=== PATIENT | male | born 1945 | race Caucasian/White ===

== ENCOUNTER 2022-07-09 07:38 | Outpatient (CLI) | payer MEDICARE, SELFPAY ==
[2022-07-09 08:10] LABS: Anion Gap 8 mmol/L (8-16); Blood Urea Nitrogen 31 mg/dL (9-20); Calcium 8.8 mg/dL (8.4-10.2); Carbon Dioxide 26 mmol/L (22-30); Chloride 101 mmol/L (98-107); Estimated Glomerular Filt Rate 49; Glucose 220 mg/dL (65-110); Potassium 4.8 mmol/L (3.4-5.0); Sodium 135 mmol/L (137-145)
== END 2022-07-09 07:39 | disposition home or self-care (01) ==
PROVIDERS: Anesthesiology; PCP Internal Medicine; Visit Provider Plastic Surgery
DX: E11.9 Type 2 diabetes mellitus without complications (principal)
CPT/HCPCS: 36415; 80048

== ENCOUNTER 2022-07-14 00:25 | Day surgery (SDC) | payer MEDICARE, SELFPAY ==
--- NOTE | 2022-07-08 10:40 | PC.NURSE ---
PRE-OP INSTRUCTIONS, PLEASE READ CAREFULLY Report to the Outpatient Waiting Room, entrance under the green pavilion located off [facility], at time _0600 _ on date _07/14/22_. Planned Procedure Time: _0730_. Time changes happen often and if your time is changed the preop area will call you the afternoon before. - You and your visitor will be asked to self-screen and do not enter if you have any COVID symptoms. - Only one visitor is requested with a max of two and NO children visitors are allowed at this time. - The patient visitor may be requested to leave or wait in car when not with patient due to distancing restrictions. - A mask is optional within the hospital at this time. Patients may have clear liquids (water, carbonated beverages, clear teas, apple juice) until 3 hours prior to surgery (0430 AM) with a maximum of 20 ounces. - No food from midnight until time of surgery Take the following medications with a SIP of water the morning of surgery: _METOPROLOL_ DO NOT STOP ANY OF YOUR OTHER PRESCRIPTION MEDICATIONS PRIOR TO SURGERY ?EXCEPT THE FOLLOWING Medications to discontinue per physician ____NONE Date to take last dose Please no make-up, nail amharic, hairspray, perfume, deodorant, or body powder the day of surgery. No jewelry (including any body piercings) or valuables the day of surgery, leave them at home. Please take a shower or bath the night before, or the morning of, surgery with an antibacterial soap. Wear comfortable, loose fitting clothing. - Jewelry must be removed prior to entering the operating room. Rings and piercings that are not removed may be cut off. - The hospital will not accept responsibility for valuables. - Please leave all valuables, including medications, at home the day of surgery. If you are going home after surgery, a licensed buggy driver must drive you home. - NO public transportation without another adult if you receive anesthesia. - We recommend that an adult stay with you for 24 hours following discharge. - We also recommend that you do not drive, make important decision, drink alcoholic beverages, or take any drugs that were not prescribed by your health care provider for at least 24 hours after your discharge time. Follow any additional instructions given to you from your surgeon. If you or anyone in your household have experienced Covid symptoms in the past week, please notify your surgeon or the nurse liaison at the phone number below for possible testing. Telephone instructions given to _PATIENT & SISTER (NEW)_and asked if any additional questions and then verbalized understanding. Patient advised to call surgeon office or pre surgery nurse liaison [phone] if any additional questions.
[2022-07-14 06:32] LABS: Glucose Point of Care 255 mg/dl (65-105)
--- NOTE | 2022-07-14 06:46 | P.PNAN_ITS ---
Anes - Initial Pre Proc Eval Procedure: Operation Date: 07/14/22 07:30 Proposed Procedures p Excision of Ulcerated Neoplasm Right Nasal Ala with Frozen Section and Full Thickness Skin Graft - Johnnie Enciso MD s Excision of Ulcerated Neoplasm Left Dorsal Hand - Johnnie Enciso MD Date/Time: 07/14/22 06:46 Surgeon: Johnnie Enciso MD Pre Op Diagnosis: Ulcerated Neoplasm Rt Nasal Ala, & (cont) Patient Data Age: 77 Gender: M Height: Weight: Allergies Allergy/AdvReac Type Severity Reaction Status Date / Time amoxicillin AdvReac Rash Verified 07/08/22 10:29 Home Medications Medication Instructions Recorded Confirmed Type aspirin 81 mg tablet,delayed 81 mg PO DAILY 07/08/22 07/08/22 History release atorvastatin 40 mg tablet 40 mg HS 07/08/22 07/08/22 History metformin 500 mg tablet 500 mg BID 07/08/22 07/08/22 History metoprolol tartrate 25 mg tablet 25 mg BID 07/08/22 07/08/22 History pantoprazole 40 mg tablet,delayed 40 mg PO QAM 07/08/22 07/08/22 History release Laboratory Tests 07/14/22 06:29 POC Capillary Glucose 255 mg/dl H mg/dl (65-105) Patient hx anesthesia problems: none Family hx anesthesia problems: none Results Review: All pre-operative results and documents have been reviewed as part of the pre- operative evaluation. [facility] Past Medical History Medical History (Updated 07/14/22 @ 06:47 by Mitchell Whaley MD) Aortic stenosis CAD (coronary artery disease) HTN (hypertension) Surgical History Surgical History (Updated 07/14/22 @ 06:47 by Mitchell Whaley MD) History of coronary artery stent placement V/ genoveva pt. aware, discussed replacement 3 years ago Family History Family History Mother Family history of lung cancer Sibling Family history of lung cancer Social History Social History Smoking status: Never smoker Second hand tobacco smoke exposure: No Alcohol intake: never Substance use: never Substance use type: does not use Additional living arrangements comments: STATES LIVES WITH SOMEONE - DOES NOT WANT TO GIVE NAME OR RELATIONSHIP Spiritual care concerns: No Anes - Eval Final PreProcedure Day of Procedure 07/14/22 06:46 Patient weight: normal Heart: regular rate and rhythm and murmur (V/ SM, denies SOB, CP or edema) Lungs: clear to auscultation Neurological: alert and oriented Last oral intake: >/= 8 hours ASA classification: III Emergent: no Anesthetic plan: proceed Anesthesia type and monitoring: general GIVS and standard monitoring Results Review: All pre-operative results and documents have been reviewed as part of the pre- operative evaluation. Informed Consent: The patient's anesthetic plan and its attendant risks and benefits were discussed with the patient/family/POA. Questions were solicited and answers provided to the satisfaction of the patient/family/POA.
[2022-07-14 07:00] VITALS: BP 128/50; PULSE 75; RESP 16; TEMP 36.2; O2SAT 100
[2022-07-14] MEDS: LACTATED RINGERS 1,000 ML 30 ML IV CONT (07:00)
--- NOTE | 2022-07-14 07:05 | WPDHPUPDATE1 ---
History and Physical Update Update Date/Time: 07/14/22 07:05 History and Physical has been reviewed, including an updated exam of the patient. There are NO changes in the patient's condition. Risks, benefits, and alternatives have been discussed and questions answered. Patient agrees to proceed with procedure.
[2022-07-14] MEDS: BACITRACIN OINTMENT 15 GM TUBE 1 APPLIC TOPICAL (07:29)
[2022-07-14] MEDS: LIDO 1%/EPINEPHRINE 1:100,000 20 ML VIAL 18 ML INFILTRATE (07:29)
[2022-07-14] MEDS: ceFAZolin 2 GM/D5W 50 ML 2 GM/50 ML BAG IVPB (07:29)
[2022-07-14 08:58] VITALS: BP 119/47; PULSE 73; RESP 19; O2SAT 100
--- NOTE | 2022-07-14 09:06 | SUR.PHASEII ---
Dr. Whaley notified of patient's blood sugar of 273. No new orders at this time.
[2022-07-14 09:29] VITALS: BP 119/47; PULSE 71; RESP 16; O2SAT 100
[2022-07-14 09:58] VITALS: BP 128/52; PULSE 76; RESP 16
[2022-07-14 10:29] LABS: Glucose Point of Care 273 mg/dl (65-105)
--- NOTE | 2022-07-14 18:20 | W.PM.PROC2 ---
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 neoplasm of unspecified behavior of the left dorsal hand) Procedure Performed 2 x 2.5 cm excision of basal cell carcinoma of the right nasal ala with frozen section and full-thickness skin graft 4 sq cm. 2.4 cm excision of ulcerated neoplasm of the left dorsal hand with complex repair 5 cm Surgeon Jonhnie Enciso MD Community Relations Assistant [facility] MAC Description of Procedure the right nose and left dorsal hand were marked with the patient's consent in the holding area. Was then taken to the operating room where he was placed supine on the operating table. He was given IV sedation by the geothermal operations engineer. His face and left hand were prepped and draped in the usual fashion. A time-out was held and confirmed. Both sites were marked for excision and infiltrated with 1% lidocaine with epinephrine. The lesion from the nose was taken 1st as a full-thickness skin specimen carefully scraped off the perichondrium from the upper ala cartilage. The aspect closest to the ala rim was marked as 12:00 p.m. for the pathologist. The tissue was sent for frozen section. Bleeding points were electrocoagulated. Attention was turned to the left hand where the previously anesthetized tissue was excised with a 15 blade as a 2.4 cm [place]. This specimen was sent for permanent section. The wound margins were undermined 2-1/2 to 3 cm in all directions to allow approximation of the wound margins. this layer was closed with multiple intradermal 3-0 Vicryl sutures. Standing cones were not removed. The skin was closed with the running 4-0 nylon suture. A bulky gauze bandage with Coban wrap was applied. The procedure was done without tourniquet control. Closure of the right nasal ala wound was performed with a full-thickness skin graft taken from the right upper neck. The graft was defatted tailored and inset to avoid tension on the wound margins of the nose. The graft was inset with 5 0 nylon sutures in the periphery and as quilting stitches across the middle of the graft. The donor site was closed with intradermal 3-0 Vicryl and glue. No bandage was applied to the nose. The patient tolerated this procedure well and was transported to the recovery room in stable condition. He had received 2 g Ancef preop and will be discharged home with a prescription for cephalexin and hydrocodone. Estimated Blood Loss 10 Drains No Packing No Pathology Yes Complications No immediate complications Condition Stable Disposition PACU
== END 2022-07-14 10:14 | disposition home or self-care (01) ==
PROVIDERS: PCP Internal Medicine; Visit Provider Plastic Surgery
PROC: (CPT 11643; principal; 2022-07-14 07:30)
PROC: (CPT 11643; 2022-07-14 07:30)
DX: C44.311 Basal cell carcinoma of skin of nose (principal); C44.629 Squamous cell carcinoma of skin of left upper limb, including shoulder; I25.10 Atherosclerotic heart disease of native coronary artery without angina pectoris; I10 Essential (primary) hypertension; I35.0 Nonrheumatic aortic (valve) stenosis; Z95.5 Presence of coronary angioplasty implant and graft; Z79.82 Long term (current) use of aspirin; Z79.84 Long term (current) use of oral hypoglycemic drugs
CPT/HCPCS: 11643; 15260; 11623; 13132; 82948; 88305; 88331; A9270; J0690; J2704; J3010; J7120

== ENCOUNTER 2023-06-05 15:23 | Emergency (ER) | payer MEDICARE, SELFPAY ==
--- NOTE | ~2023-06-05 | XR_ITS ---
EXAMINATION: XR chest 2V 06/05/2023 16:29 INDICATION: Cough PROCEDURE: PA and lateral views of the chest COMPARISON: No prior studies for comparison. FINDINGS: The lungs are clear. The cardiomediastinal silhouette is within normal limits. There are no pleural effusions. There is no pneumothorax suspected. Status post median sternotomy for CABG. T here is a prosthetic aortic valve. Mildly elevated left diaphragm. Moderate gastric distention. IMPRESSION: 1: NO ACUTE CARDIOPULMONARY DISEASE. Reviewed, dictated and finalized at location A. RATE DEALER
[2023-06-05 15:47] VITALS: BP 130/89; PULSE 72; RESP 16; TEMP 36.8; O2SAT 100
[2023-06-05 16:05] VITALS: PULSE 72; RESP 16; O2SAT 100
--- NOTE | 2023-06-05 16:22 | ED.GENADULT ---
HPI - General Adult General Chief complaint: Upper Respiratory Infection Stated complaint: Cold symptoms Source: patient Mode of arrival: ambulatory Limitations: no limitations History of Present Illness HPI narrative: Patient presents for evaluation of sick symptoms for last week. He reports sinus congestion, clear nasal drainage, productive cough of clear sputum and wheezing. He denies any fever, chills, SOB, nausea, vomiting. He had some diarrhea but that improved. No recent sick contacts to his knowledge. He does not smoke. He is diabetic but home blood sugars are in 130's. His PCP gave him a script for azithromycin, which he took as directed. Symptoms improved but not resolved. Related Data Home Medications Medication Instructions Recorded Confirmed aspirin 81 mg tablet,delayed 81 mg PO DAILY 07/08/22 07/14/22 release atorvastatin 40 mg tablet 40 mg HS 07/08/22 07/08/22 metformin 500 mg tablet 500 mg BID 07/08/22 07/08/22 metoprolol tartrate 25 mg tablet 25 mg BID 07/08/22 07/14/22 pantoprazole 40 mg tablet,delayed 40 mg PO QAM 07/08/22 07/08/22 release Allergies Allergy/AdvReac Type Severity Reaction Status Date / Time amoxicillin AdvReac Rash Verified 07/14/22 07:09 Review of Systems Review of Systems: CONSTITUTIONAL: Denies fever, chills, or sweats. EYES: Denies visual changes, redness, or discharge. ENT: Reports sinus congestion and drainage. Denies sore throat or otalgia CARDIOVASCULAR: Denies chest pain, palpitations, or edema. RESPIRATORY:Reports cough and wheezing. Denies SOB GASTROINTESTINAL: Reports recent diarrhea, none currently. Denies abdominal pain, nausea, or vomiting GENITOURINARY: Denies dysuria or hematuria. SKIN: Denies rash or itching. MUSCULOSKELETAL: Denies back pain, joint pain, or myalgia. NEUROLOGIC: Denies headache, numbness, dizziness, or weakness. PSYCHIATRIC: Denies anxiety or depression. [facility] Past Medical History Medical History Aortic stenosis CAD (coronary artery disease) HTN (hypertension) Hyperlipidemia Surgical History Surgical History History of coronary artery stent placement V/ genoveva, pt. aware, discussed replacement 3 years ago Family History Family History Mother Family history of lung cancer Sibling Family history of lung cancer Social History Social History Smoking status: Never smoker Second hand tobacco smoke exposure: No Alcohol intake: never Substance use: never Substance use type: does not use Additional living arrangements comments: STATES LIVES WITH SOMEONE - DOES NOT WANT TO GIVE NAME OR RELATIONSHIP Spiritual care concerns: No Exam Narrative: GENERAL: Well-appearing, well-nourished, and in no acute distress. HEAD: Normocephalic, atraumatic. EYES: PERRLA and EOMI. ENT: Nares clear, no rhinorrhea or epistaxis. Mucous membranes moist. Oropharynx without tonsillar hypertrophy exudate or other lesions. Bilateral TMs pearly henderson nonbulging NECK: Supple. No adenopathy or masses. No carotid bruits or JVD CHEST: Wheezing and rales noted in posterior lung day bilaterally, R>L. Cough present on exam HEART: Regular rate and rhythm. No murmur heard. Normal peripheral pulses. ABDOMEN: Soft, nontender, nondistended, normal active bowel sounds. EXTREMITIES: Normal range of motion. No edema. SKIN: Warm, dry, no rash. NEURO: No focal deficits. Alert and oriented x3. PSYCH: Normal mood and affect. Course Course Emergency Course: This is a 78-year-old male who presented for evaluation of sick symptoms. COVID and influenza negative. Chest x-ray negative however he has rales on exam which were persistent after solumedrol and neb treatment. I have clinical suspicion that
[2023-06-05] MEDS: methylPREDNISolone SOD SUCC 125 MG VIAL IM (16:35)
[2023-06-05] MEDS: ALBUTEROL SULFATE NEB 2.5 MG/3 ML INH INHALATION (16:38)
[2023-06-05] MEDS: IPRATROPIUM BR 0.02% INH SOLN 0.5 MG/2.5 ML VIAL INHALATION (16:38)
[2023-06-05 17:03] VITALS: PULSE 76; RESP 16; O2SAT 100
== END 2023-06-05 17:07 | disposition home or self-care (01) ==
PROVIDERS: Emergency Provider Nurse Practitioner; PCP Internal Medicine
DX: J18.9 Pneumonia, unspecified organism (principal); I25.10 Atherosclerotic heart disease of native coronary artery without angina pectoris; I10 Essential (primary) hypertension; E78.5 Hyperlipidemia, unspecified; Z20.822 Contact with and (suspected) exposure to COVID-19
CPT/HCPCS: 71046; 87426; 87804; 96372; 99213; C9803; G0463; J2930

== ENCOUNTER 2023-08-06 14:48 | Emergency (ER) | payer MEDICARE, SELFPAY ==
--- NOTE | ~2023-08-06 | XR_ITS ---
EXAMINATION: XR chest 2V Exam Date/Time: 08/06/2023 15:00 MEDICAL RECORDS MANAGER HISTORY: COUGH X 2 WEEKS Comparison: 06/05/2023. RESULT: Lines, tubes, and devices: Left chest pacer with intact leads. Replacement. Lungs and pleura: Clear. Cardiomediastinal silhouette: Stable. Other: No acute osseous or upper abdominal finding. Persistent air distention of the stomach. IMPRESSION: No acute cardiopulmonary process. Reviewed, dictated and finalized at location K. CAL RECORDS MANAGER
--- NOTE | 2023-08-06 14:51 | ED.URI ---
HPI - URI/Sore Throat General Chief Complaint: Upper Respiratory Infection Stated Complaint: COUGH/SOB Time Seen by Provider: 08/06/23 14:50 Source: patient Mode of arrival: ambulatory Limitations: no limitations History of Present Illness HPI Narrative: Mr. Le is a 78-year-old male patient presenting to the clinic today with complaints of cough, runny nose, and shortness of breath x1 0.5 weeks. He reports that the cough is productive it is bringing up some clear phlegm. Does as though he is having a lot of wheezing as well. Denies any chest pain. No known fever or chills. MD elicited complaint: cough and nasal congestion Related Data Home Medications Medication Instructions Recorded Confirmed aspirin 81 mg tablet,delayed 81 mg PO DAILY 07/08/22 08/06/23 release atorvastatin 40 mg tablet 40 mg PO HS 07/08/22 08/06/23 metformin 500 mg tablet 1,000 mg PO BID 07/08/22 08/06/23 metoprolol tartrate 25 mg tablet 12.5 mg PO BID 07/08/22 08/06/23 dapagliflozin propanediol 5 mg 5 mg PO DAILY 08/06/23 08/06/23 tablet (Farxiga) losartan 25 mg tablet 25 mg PO BID 08/06/23 08/06/23 omega-3 fatty acids-fish oil 300 2 cap PO DAILY 08/06/23 08/06/23 mg-1,000 mg capsule Allergies Allergy/AdvReac Type Severity Reaction Status Date / Time amoxicillin AdvReac Rash Verified 08/06/23 14:56 Review of Systems Review of Systems: Pertinent positives per HPI. Patient denies any fever, chills, rash, headache, visual changes, dizziness, chest pain, palpitations, nausea, vomiting, diarrhea, constipation, abdominal pain, or any urinary issues. [facility] Past Medical History Medical History Aortic stenosis CAD (coronary artery disease) HTN (hypertension) Hyperlipidemia Surgical History Surgical History History of coronary artery stent placement V/ genoveva, pt. aware, discussed replacement 3 years ago Family History Family History Mother Family history of lung cancer Sibling Family history of lung cancer Social History Social History Smoking status: Never smoker Second hand tobacco smoke exposure: No Alcohol intake: never Substance use: never Substance use type: does not use Additional living arrangements comments: STATES LIVES WITH SOMEONE - DOES NOT WANT TO GIVE NAME OR RELATIONSHIP Spiritual care concerns: No Comments At the time of my signature, I reviewed and agree with the nursing past medical, surgical, social, and family history. There is no relevant family history pertinent to the patient complaint. Exam Narrative: General: Well-developed, well nourished, in no apparent distress Head: Normocephalic, atraumatic Eyes: Pupils equally round and reactive to light bilaterally, EOM intact, sclera and conjunctive clear, no discharge, lids normal Ears: TMs intact and clear, ear canals clear, no drainage, grossly hearing normal. Nose: Nares patent, clear discharge, no inflammation, no sinus tenderness. Mouth: Oral pharynx without lesions or masses, good dentition, MMM. Neck: Supple, trachea midline, no enlargement of anterior or posterior cervical nodes, no thyroid masses or goiter palpable. Cardio: Regular rate and rhythm, s1 and s2 normal, no murmur appreciated. Resp: Lung sounds tight with expiratory wheezing, no rhonchi, rales, or rubs Course Course Emergency Course: Portions of this record may have been created with voice recognition software. Level of Care: Express Care Visit Vital Signs Vital signs: Vital signs reviewed MDM - URI/Sore Throat MDM Narrative Medical decision making narrative: At the time of visit patient is resting comfortably on the exam table. Patient appears to be nontoxic. Diagnostics: Chest x-rays negative for any sig
[2023-08-06 14:59] VITALS: BP 107/61; PULSE 86; RESP 16; TEMP 37.1; O2SAT 100
[2023-08-06 15:05] VITALS: BP 107/61; PULSE 86; RESP 16; TEMP 37.1; O2SAT 100
[2023-08-06] MEDS: ALBUTEROL SULFATE NEB 2.5 MG/3 ML INH INHALATION (15:13)
[2023-08-06] MEDS: IPRATROPIUM BR 0.02% INH SOLN 0.5 MG/2.5 ML VIAL INHALATION (15:13)
[2023-08-06 15:35] VITALS: RESP 20
== END 2023-08-06 15:37 | disposition home or self-care (01) ==
PROVIDERS: Emergency Provider Nurse Practitioner Family; PCP Internal Medicine
DX: J40 Bronchitis, not specified as acute or chronic (principal); I35.0 Nonrheumatic aortic (valve) stenosis; I25.10 Atherosclerotic heart disease of native coronary artery without angina pectoris; I10 Essential (primary) hypertension; E78.5 Hyperlipidemia, unspecified; Z95.5 Presence of coronary angioplasty implant and graft; Z79.82 Long term (current) use of aspirin
CPT/HCPCS: 71046; 94640; 99213; G0463

== ENCOUNTER 2023-08-14 13:57 | Inpatient (IN) | payer MEDICARE, SELFPAY ==
[2023-08-14] VITALS (15 sets, daily range): BP systolic 119–183; BP diastolic 69–89; PULSE 73–97; RESP 16–25; TEMP 36.4–36.7; O2SAT 96–100; BMI 29.8
--- NOTE | ~2023-08-14 | XR_ITS ---
EXAMINATION: XR chest 1V portable Exam Date/Time: 08/14/2023 14:50 YARN SPOOLER HISTORY: right chest pain/ back pain Comparison: 08/06/2023. RESULT: Lines, tubes, and devices: Left chest pacer, leads in stable position. Cardiac valve replacement. Lungs and pleura: Clear. Persistent left hemidiaphragm elevation with left basilar atelectasis/scar. Cardiomediastinal silhouette: Stable. Other: No acute osseous or upper abdominal finding. IMPRESSION: No acute cardiopulmonary process. Reviewed, dictated and finalized at location K. SPOOLER
--- NOTE | ~2023-08-14 | CT_ITS ---
EXAMINATION: CTA chest PE protocol DATE: 08/14/2023 16:09 INDICATION: ddimer, cp TECHNIQUE: Computed tomography angiography (CTA) of the chest was performed with 100 mL Omnipaque-350 intravenous contrast timed to evaluate the pulmonary arteries. Coronal maximum intensity projection 3D-reconstructions were created by the technologist. The dose-length product (DLP) was 587.68 mGy-cm. Automated exposure control and iterative reconstruction technique were employed. COMPARISON: X-ray chest, same date. FINDINGS: Lung parenchyma and airways: Mild dependent scar/atelectasis and senescent change. Pleura: Unremarkable. Thoracic inlet, axillae and chest wall: Left chest pacer with leads in the right ventricle and right atrium. Thoracic aorta: Mild arch calcification. No significant dilation. No dissection. Mediastinum: Small hiatal hernia. Patulous esophagus. Heart and pericardium: Mild cardiomegaly. Aortic valve replacement. Coronary artery calcifications: Moderate. Upper abdomen: No significant finding. Bones: No acute osseous finding. Pulmonary arteries: Study quality: Adequate. No pulmonary emboli detected. IMPRESSION: No CT evidence of acute pulmonary embolus. No acute process detected in the chest. Reviewed, dictated and finalized at location K. TY SHERIFF
--- NOTE | 2023-08-14 14:38 | ED.BACK ---
HPI - Back Pain/Injury General Chief Complaint: Back Pain/Injury Stated Complaint: back pain Time Seen by Provider: 08/14/23 14:26 History of Present Illness HPI Narrative: 78-year-old male presenting to the emergency department for evaluation of right-sided back and chest pain. Patient does have a recent diagnosis pneumonia and bronchitis. Patient reports since yesterday he has had worsening back and chest pain. Patient states at baseline he does have some ache in that area but when he coughs or has deep inspiration he has a sharp pain. Patient does have a prior history of [place] does have stents in place. Patient's most recent stress test was within last 5 years. Patient does follow-up with Dr. Okeefe for Cardiology and did have recent follow-up. Related Data Home Medications Medication Instructions Recorded Confirmed aspirin 81 mg tablet,delayed 81 mg PO DAILY 07/08/22 08/14/23 release atorvastatin 40 mg tablet 40 mg PO DIRECTED 07/08/22 08/14/23 metformin 500 mg tablet 1,000 mg PO BID 07/08/22 08/14/23 metoprolol tartrate 25 mg tablet 12.5 mg PO BID 07/08/22 08/14/23 losartan 25 mg tablet 25 mg PO BID 08/06/23 08/14/23 omega-3 fatty acids-fish oil 300 2 cap PO DAILY 08/06/23 08/14/23 mg-1,000 mg capsule Allergies Allergy/AdvReac Type Severity Reaction Status Date / Time amoxicillin AdvReac Rash Verified 08/06/23 14:56 Review of Systems Review of Systems: All systems reviewed & are unremarkable except as noted in HPI and below PMFSH Past Medical History Medical History (Updated 08/14/23 @ 20:42 by Salma Fitzpatrick APRN) Aortic stenosis CAD (coronary artery disease) HTN (hypertension) Hyperlipidemia Surgical History Surgical History History of coronary artery stent placement V/ genoveva, pt. aware, discussed replacement 3 years ago Family History Family History Mother Family history of lung cancer Sibling Family history of lung cancer Social History Social History Smoking status: Never smoker Second hand tobacco smoke exposure: No Alcohol intake: never Substance use: never Substance use type: does not use Do You Feel Safe in your Home?: Yes Lack of Transportation: No Lack of Food: Never True Current Housing: I Have Housing Concerned About Future Housing: No Difficulty Paying Gas/Electric Bills: No Difficulty Paying for Meds: No Currently Unemployed: No Education: High School Diploma/GED Difficulty w/ Childcare or Family Care: No Additional living arrangements comments: STATES LIVES WITH SOMEONE - DOES NOT WANT TO GIVE NAME OR RELATIONSHIP Spiritual care concerns: No Exam Narrative: APPEARANCE: Well appearing, no pain, no distress, well-nourished. HEAD: normocephalic, atraumatic. EYES: PERRLA/EOMI, conjunctivae clear. NOSE: Normal no drainage NECK: Supple. No adenopathy, no masses. RESPIRATORY: Airway patent, respirations nonlabored. Clear to auscultation bilaterally, no rales, rhonchi, wheezing. CARDIOVASCULAR: Regular rate and rhythm without murmurs rubs or gallops. ABDOMINAL: Soft, nontender, nondistended, normal bowel sounds MUSCULOSKELETAL: Moves all extremities. Strength/ROM intact, No edema, No calf tenderness. No reproducible right chest for right back pain NEURO: Alert. Cranial nerves II through XII intact. Grossly intact SKIN: Warm, dry. Normal Color Course Course Emergency Course: Patient was admitted to the IMU for concern for an NSTEMI Vital Signs Vital signs: Vital Signs Temperature 97.8 F 08/14/23 14:20 Pulse Rate 88 08/14/23 14:20 Respiratory Rate 16 08/14/23 14:20 Blood Pressure 132/78 08/14/23 14:20 Pulse Oximetry 99 08/14/23 14:20 Temperature 98.1 F 08/14/23 19:30 Pulse Rate 84 08/14/23 19:30 Respiratory Rate 18 03
--- NOTE | 2023-08-14 14:41 | ECG_ITS ---
Measurements Intervals [place] Rate: 87 P: 47 NV: 252 QRS: 228 QRSD: 148 T: 36 QT: 376 QTc: 454 Interpretive Statements SINUS RHYTHM WITH FIRST DEGREE AV BLOCK POSSIBLE LEFT ATRIAL ENLARGEMENT RIGHT AXIS DEVIATION RIGHT BUNDLE BRANCH BLOCK BASELINE ARTIFACT- I, III, AVL ABNORMAL ECG NO PREVIOUS ECG AVAILABLE FOR COMPARISON Electronically Signed On 08-14-2023 15:31:34 INSPECTOR CLIP ON SUNGLASSES by Renard Mayes D.O.
[2023-08-14 15:07] LABS: Basophils Absolute Auto 0.1 K/mm3 (0.0-0.1); Basophils Percent Auto 0.5 % (0.2-1.2); Eosinophils Absolute Auto 0.5 K/mm3 (0-0.3); Eosinophils Percent Auto 3.5 % (0-4.4); Hematocrit 37.3 % (42.0-52.0); Hemoglobin 11.5 g/dL (14.0-18.0); Immature Granulocyte Absolute 0.05 K/mm3 (0.00-0.031); Immature Granulocyte Percent A 0.3 % (0-0.5); Lymphocytes Absolute Auto 3.24 K/mm3 (0.9-3.2); Lymphocytes Percent Auto 21.6 % (18.3-44.2); Mean Corpuscular HGB Conc 30.8 g/dl (32-36); Mean Corpuscular Hemoglobin 27.7 pg (26-34); Mean Corpuscular Volume 89.9 fl (80-100); Mean Platelet Volume 10.1 fl (7.4-10.4); Monocytes Absolute Auto 1.7 K/mm3 (0.1-0.6); Monocytes Percent Auto 11.1 % (2.6-8.5); Neutrophils Absolute Auto 9.4 K/mm3 (1.3-6.7); Platelet Count Result 232 k/mm3 (150-375); Red Blood Count 4.15 M/mm3 (4.6-6.20); Red Cell Distribution Width 15.3 % (11.5-14.5)
[2023-08-14 15:15] LABS: Alanine Aminotransferase 22 U/L (6-50); Albumin Level 3.9 g/dL (3.5-5.1); Alkaline Phosphatase 42 U/L (38-126); Anion Gap 10 mmol/L (8-16); Aspartate Amino Transferase 29 U/L (17-59); Bilirubin,Total 0.4 mg/dL (0.2-1.3); Blood Urea Nitrogen 47 mg/dL (9-20); Calcium 9.2 mg/dL (8.4-10.2); Carbon Dioxide 20 mmol/L (22-30); Chloride 106 mmol/L (98-107); Estimated CRCL calculation 43 ml/min; Estimated Glomerular Filt Rate 49; Glucose 124 mg/dL (65-110); Potassium 4.7 mmol/L (3.4-5.0); Sodium 136 mmol/L (137-145)
[2023-08-14 15:19] LABS: INR 0.9; Prothrombin Time 12.9 Seconds (11.1-14.7)
[2023-08-14 15:20] LABS: Partial Thromboplastin Time 26.8 SECONDS (22.3-36.8)
[2023-08-14 15:31] LABS: NT Pro B Type Natriuretic Pept 1490 pg/mL (19.9-100)
[2023-08-14 15:36] LABS: D Dimer 2.12 ug/mL (<0.48)
[2023-08-14 16:20] LABS: Appearance Urine Clear (Clear); Bilirubin Urine Negative (Negative); Blood Urine Negative (Negative); Color Urine Yellow (Yellow); Glucose Urine UA Trace mg/dL (Negative); Ketones Urine Negative (Negative); Leukocyte Esterase Ur Negative LEU/UL (Negative); Nitrate Urine Negative (Negative); Protein Urine Negative (Negative); Specific Grav Ur 1.024 (1.001-1.035); Urobilinogen Urine 0.2 mg/dL (<2.0)
[2023-08-14 16:32] LABS: Add Urine Microscopic? NO
[2023-08-14] MEDS: NITROGLYCERIN OINTMENT 1 INCH DOSE TRANSDERM (17:42)
--- NOTE | 2023-08-14 17:48 | ECG_ITS ---
Measurements Intervals [place] Rate: 74 P: 67 NC: 265 QRS: -83 QRSD: 154 T: 58 QT: 397 QTc: 441 Interpretive Statements SINUS RHYTHM WITH FIRST DEGREE AV BLOCK POSSIBLE LEFT ATRIAL ENLARGEMENT RIGHT BUNDLE BRANCH BLOCK LEFT ANTERIOR FASCICULAR BLOCK BASELINE ARTIFACT- I, III, AVR, AVL, V1, V3 ABNORMAL ECG COMPARED TO ECG 08/14/2023 14:57:44 NO SIGNIFICANT CHANGES Electronically Signed On 08-14-2023 20:34:11 HAND BOX FOLDER by Renard Mayes D.O.
[2023-08-14] MEDS: HEPARIN SODIUM 5,000 UNITS/ML VIAL 4000 UNITS IV PUSH (18:19)
[2023-08-14] MEDS: HEPARIN SOD/D5W 100 UNITS/ML 25,000 UNITS/250 ML BAG 9 UNITS IV CONT (18:20)
--- NOTE | 2023-08-14 19:59 | ADMGEN ---
This patient, Lino Le, was admitted to IMU Room 205-01.@ 1930 Patient/family oriented to hospital policies and general routines including ID bracelet, bed and alarms, visiting hours, pain management, procedures, bathroom and other care routines, personal items, smoking policy, room service/diet, and visiting hours. Information on how to activate the Rapid Response Team has been discussed. Patient/Family are encouraged to report perceived risks to care and to ask questions if they do not understand what they are told or what they should do.
[2023-08-14 20:02] LABS: Glucose Point of Care 177 mg/dl (65-105)
--- NOTE | 2023-08-14 20:19 | ECG_ITS ---
Measurements Intervals [place] Rate: 90 P: 45 LA: 253 QRS: 252 QRSD: 145 T: 49 QT: 376 QTc: 461 Interpretive Statements SINUS RHYTHM WITH FIRST DEGREE AV BLOCK RIGHT AXIS DEVIATION POSSIBLE LEFT ATRIAL ENLARGEMENT RIGHT BUNDLE BRANCH BLOCK ABNORMAL ECG COMPARED TO ECG 08/14/2023 17:53:19 NO SIGNIFICANT CHANGES Electronically Signed On 08-14-2023 20:36:24 PARADICHLOROBENZENE TENDER by Renard Mayes D.O.
--- NOTE | 2023-08-14 20:33 | PM.IMHP ---
H&P: HPI History of Present Illness Date/Time: 08/14/23 20:33 Chief Complaint: Upper Back Pain Narrative: 78 y/o M presents here with upper back pain with PMH of DM2, aortic stenosis, CAD w/stent placement (2017 stent), HTN, and HLD. Patient presented here from home for evaluation upper back pain and chest pain. Pain more so in upper back/between shoulder blades with radiation to his sternum, epigastrium, and RUE. Pain started last night around 8 pm while patient was standing/not exerting himself. Patient had to sit down in his car after pain started due to intensity and had pre-syncopal sensation without full syncope. Pain was a 5/10, achy, and constant. Pain did not wake patient through the night but was present when he woke up to use the restroom. Patient took his daily medication this morning which included a daily ASA which did not help. Pain did not worsen this morning, but did not resolve so patient sought care at [place] [facility]. Heparin and nitro paste were applied after arrival and pain partially resolved. Currently 3/10 in his upper back with radiation into his sternum and is no longer radiating into his RUE. No nausea, diaphoresis, jaw pain, palpitations, or syncope. Patient last saw his EP on Tuesday and pacemaker was checked, no episodes and no malfunctions. Additionally, patient was last seen in the ED on 08/06/2023 and was diagnosed with bronchitis and was discharged home with prednisone, azithromycin, and albuterol. Patient continues to have a productive cough - mostly clear, but thick. No fever, chills, or body aches. SOB has been improving. Has been taking liquid cold medication at home - last dose this morning. Initial VS at presentation: 97.8F, HR 88, RR 16, 132/78, 99%. ED workup showed leukocytosis with WBC of 15, mild anemia, D-dimer 2.12, creatinine 1.4 (previously 1.4 in June), initial troponin 0.17, BNP 1490, and UA not suspicious for UTI. CXR showed no acute cardiopulmonary process. CTA obtained due to elevated D-dimer, no evidence of PE and no acute process detected in the chest. Initial EKG showed sinus rhythm with first-degree AV block, possible left atrial enlargement, right axis deviation, RBBB, baseline artifact. 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 Family History Family History Mother Family history of lung cancer Sibling Family history of lung cancer Social History Social History Smoking status: Never smoker Second hand tobacco smoke exposure: No Alcohol intake: never Substance use: never Substance use type: does not use Do You Feel Safe in your Home?: Yes Lack of Transportation: No Lack of Food: Never True Current Housing: I Have Housing Concerned About Future Housing: No Difficulty Paying Gas/Electric Bills: No Difficulty Paying for Meds: No Currently Unemployed: No Education: High School Diploma/GED Difficulty w/ Childcare or Family Care: No Additional living arrangements comments: STATES LIVES WITH SOMEONE - DOES NOT WANT TO GIVE NAME OR RELATIONSHIP Spiritual care concerns: No Meds Home Medications and Allergies Home Medications Medication Instructions Recorded Confirmed Type aspirin 81 mg tablet,delayed 81 mg PO DAILY 07/08/22 08/14/23 Histo
[2023-08-14] MEDS: METOPROLOL TARTRATE 12.5 MG TABLET PO (21:41)
[2023-08-14] MEDS: LOSARTAN POTASSIUM 25 MG TABLET PO (21:42)
[2023-08-14] MEDS: PANTOPRAZOLE SODIUM IV 40 MG VIAL IV PUSH (21:42)
[2023-08-14] MEDS: ASPIRIN 81 MG CHEWABLE TABLET 243 MG PO (22:26)
[2023-08-14] MEDS: BENZONATATE 100 MG CAPSULE PO (22:54)
[2023-08-14] MEDS: MORPHINE SULFATE (*CRX) 2 MG/ML INJ IV PUSH (22:55)
[2023-08-14] MEDS: BENZOCAINE/MENTHOL (*BKC) 18 EA LOZENGE 1 LOZENGE PO (23:08)
[2023-08-15] VITALS (36 sets, daily range): BP systolic 98–132; BP diastolic 49–75; PULSE 70–99; RESP 12–25; TEMP 36–36.7; O2SAT 95–100
--- NOTE | 2023-08-15 | ECHO_ITS ---
Patient Info Name: Lino Le Age: 78 years : 1945 Gender: Male Ht: 68 in Wt: 196 lbs BSA: 2.09 m2 HR: 58 bpm BP: 108 / 68 mmHg Heart Rhythm: Sinus Rhythm Technical Quality: Fair Exam Date: 08/15/2023 8:48 AM Exam Location: Echo Lab Patient Status: Inpatient Admit Date: 08/14/2023 Staff Ordering Physician: Salma Fitzpatrick APRN Toolroom Machinist: Destiny Luther RDCS Attending Provider: Chavo Lindsay MD Referring Physician: Nanette CAMPOS; Exam Type: CA echo doppler color flow Study Info Indications - NSTEMI, Elevated BNP Complete two-dimensional, color flow and Doppler transthoracic echocardiogram is performed with contrast to opacify the left ventricle and to improve the deliniation of the left ventricle endocardial borders. Contrast/Agitated Saline Contrast/Ag. Saline: Definity Amount: 2.00 ml Administered By: Destiny Luther RDCS Existing IV Access: Yes IV Access Condition: patent with no signs of infiltration Summary 1. Left ventricular chamber dimension is normal. 2. Left ventricular systolic function is normal, estimated at 60-65%. 3. There is mildly increased left ventricular wall thickness. 4. The left ventricular diastolic function is grade I diastolic dysfunction. 5. The basal inferior wall is akinetic. 6. The mid inferior wall, basal inferoseptal, and mid inferoseptal are hypokinetic. 7. Left atrial chamber dimension is moderately enlarged. 8. There is mild TAVR aortic valve stenosis with a peak velocity of 184 cm/s, mean gradient of 7 mmHg, and aortic valve area of 1.2 cm2. 9. The mitral valve annulus is moderately calcified. Left Ventricle Left ventricular chamber dimension is normal. Left ventricular systolic function is normal, estimated at 60-65%. There is mildly increased left ventricular wall thickness. The left ventricular diastolic function is grade I diastolic dysfunction. The basal inferior wall is akinetic. The mid inferior wall, basal inferoseptal, and mid inferoseptal are hypokinetic. All other cochran appear normal. Right Ventricle Right ventricular chamber dimension is normal. Right ventricular systolic function is normal. Linear artifact in right ventricle suggestive of catheter(s), pacemaker lead(s), or ICD lead(s). Left Atria Left atrial chamber dimension is moderately enlarged. Right Atria Right atrial chamber dimension is normal. Linear artifact in the right atrium suggestive of catheter(s), pacemaker lead(s), or ICD lead(s). Atrial Septum Intact interatrial septum visualized by color flow imaging. Aortic Valve There is mild TAVR aortic valve stenosis with a peak velocity of 184 cm/s, mean gradient of 7 mmHg, and aortic valve area of 1.2 cm2. There is trace regurgitation of the TAVR aortic valve. Pulmonic Valve The pulmonic valve is normal. There is no pulmonic valve stenosis. There is trace pulmonic regurgitation. Mitral Valve There is no mitral valve stenosis. There is trace mitral valve regurgitation. The mitral valve annulus is moderately calcified. Tricuspid Valve The tricuspid valve leaflets are normal. There is no significant tricuspid valve stenosis. There is trace tricuspid valve regurgitation. Pericardium/Pleural The pericardium appears normal. There is no pericardial effusion. Inferior Vena Cava Normal inferior vena cava with >50% collapse upon inspiration consistent with normal right atrial pressure, 5 mmHg. Aorta The aortic root size at the sinus of Valsalva is normal. Left Ventricular Outflow Tract
[2023-08-15 00:38] LABS: Partial Thromboplastin Time 49.7 SECONDS (22.3-36.8)
[2023-08-15] MEDS: HEPARIN SODIUM 5,000 UNITS/ML VIAL 4000 UNITS IV PUSH (00:59)
[2023-08-15 04:54] LABS: Basophils Percent Auto 0.4 % (0.2-1.2); Eosinophils Absolute Auto 0.5 K/mm3 (0-0.3); Eosinophils Percent Auto 4.5 % (0-4.4); Hematocrit 35.2 % (42.0-52.0); Hemoglobin 10.8 g/dL (14.0-18.0); Immature Granulocyte Absolute 0.04 K/mm3 (0.00-0.031); Immature Granulocyte Percent A 0.4 % (0-0.5); Lymphocytes Absolute Auto 2.78 K/mm3 (0.9-3.2); Lymphocytes Percent Auto 26.4 % (18.3-44.2); Mean Corpuscular HGB Conc 30.7 g/dl (32-36); Mean Corpuscular Hemoglobin 27.5 pg (26-34); Mean Corpuscular Volume 89.6 fl (80-100); Mean Platelet Volume 10.1 fl (7.4-10.4); Monocytes Absolute Auto 1.2 K/mm3 (0.1-0.6); Neutrophils Percent Auto 57.3 % (45.5-73.1); Platelet Count Result 223 k/mm3 (150-375); Red Blood Count 3.93 M/mm3 (4.6-6.20); White Blood Count 10.5 K/mm3 (4.5-10.0)
[2023-08-15 05:21] LABS: LDL Cholesterol Direct 74 mg/dL
[2023-08-15 05:25] LABS: Alanine Aminotransferase 20 U/L (6-50); Albumin Level 3.4 g/dL (3.5-5.1); Alkaline Phosphatase 44 U/L (38-126); Anion Gap 3 mmol/L (8-16); Aspartate Amino Transferase 69 U/L (17-59); Bilirubin,Total 0.4 mg/dL (0.2-1.3); Blood Urea Nitrogen 35 mg/dL (9-20); Calcium 8.6 mg/dL (8.4-10.2); Carbon Dioxide 27 mmol/L (22-30); Chloride 103 mmol/L (98-107); Cholesterol 132 mg/dL (0-200); Estimated CRCL calculation 45 ml/min; Estimated Glomerular Filt Rate 59; Glucose 185 mg/dL (65-110); HDL Direct 44 mg/dL; Magnesium 1.9 mg/dL (1.6-2.3); Sodium 133 mmol/L (137-145); Triglycerides 97 mg/dL (<150)
[2023-08-15] MEDS: BENZONATATE 100 MG CAPSULE PO ×2 (05:47→20:15)
[2023-08-15 05:48] LABS: Hemoglobin A1C 8.3 % (<5.7)
--- NOTE | 2023-08-15 07:00 | ECG_ITS ---
Measurements Intervals [place] Rate: 70 P: 128 NC: 286 QRS: 261 QRSD: 145 T: 50 QT: 416 QTc: 449 Interpretive Statements ELECTRONIC ATRIAL PACEMAKER RIGHT AXIS DEVIATION RIGHT BUNDLE BRANCH BLOCK ABNORMAL ECG COMPARED TO ECG 08/14/2023 20:31:40 ELECTRONIC ATRIAL PACEMAKER NOW PRESENT Electronically Signed On 08-15-2023 9:27:38 PHARMACIST TECHNICIAN by Renard Mayes D.O.
[2023-08-15 07:13] LABS: Partial Thromboplastin Time 99.1 SECONDS (22.3-36.8)
[2023-08-15 09:02] LABS: Glucose Point of Care 218 mg/dl (65-105)
--- NOTE | 2023-08-15 09:12 | PM.CNCAR ---
Assessment and Plan Assessment and plan (1) Non-ST elevation [place] (NSTEMI): Code(s): I21.4 - Non-ST elevation (NSTEMI) myocardial infarction Status: Acute Assessment and Plan: Presents with chest and intrascapular/neck pain which has been ongoing for 2 days. Troponin levels are elevated at 0.107, 1.710, and 7.250. This likely represents ACS/true NSTEMI. No ischemic EKG changes. He is stable and free from chest pain at this point. Continue anticoagulation with heparin drip Continue beta klever, losartan, ASA, statin p.r.n. nitro for chest pain NPO at midnight with plan for [facility] in the morning Echo has been performed, results pending Continue telemetry - Further recommendations to follow cardiac cath (2) HTN (hypertension): Qualifiers: Hypertension type: primary hypertension Qualified Code(s): I10 - Essential (primary) hypertension Code(s): I10 - Essential (primary) hypertension Status: Acute Assessment and Plan: He was hypertensive initially, but BP is at goal now. Continue current antihypertensive medications. (3) Hyperlipidemia: Code(s): E78.5 - Hyperlipidemia, unspecified Status: Acute Assessment and Plan: Continue statin (4) Aortic stenosis: Code(s): I35.0 - Nonrheumatic aortic (valve) stenosis Status: Acute Assessment and Plan: s/p TAVR in 2022. (5) CAD (coronary artery disease): Code(s): I25.10 - Atherosclerotic heart disease of [place] coronary artery without angina pectoris Status: Acute Assessment and Plan: History of coronary artery disease with one stent placed around 2014 according to patient report. He apparently has not had any issues with his CAD since that time. He does state he underwent an exercise stress test last year prior to his TAVR and this test was unremarkable. As above, plan for coronary angiogram tomorrow. History of Present Illness History of Present Illness Consult date/time: 08/15/23 09:12 Requesting physician: Max Peace MD Consult reason: chest pain Reason For Visit: NSTEMI Narrative: Lino Le is a 78 year old male with aortic stenosis status post TAVR in 2022, CAD with one stent (~2014 according to patient), permanent pacemaker (2022), hypertension, and hyperlipidemia. This is a patient who follows with Dr. Ivy at [facility]. He presents to [facility] with complaint of intrascapular, neck, and central chest pain. Pain began about two days ago and has been constant since that time. He was standing up at the onset of pain and thought sitting in his car and leaning his seat back might help but it did not. He states he felt light headed and was concerned he was going to pass out. He denies any exertional chest pain. Denies shortness of breath, palpitations, syncope, edema. In the emergency department his initial troponin was 0.107 and has risen to 7.250. He states he has been free of chest pain since receiving morphine and nitroglycerin last night. Review of Systems Review of Systems: All systems reviewed & are unremarkable except as noted in HPI and below PMFSH Past Medical History Medical History (Updated 08/15/23 @ 10:43 by Marvel Mariano MD) Aortic stenosis CAD (coronary artery disease) DM2 (diabetes mellitus, type 2) HTN (hypertension) Hyperlipidemia Myocardial infarct, old Surgical History Surgical History History of cardiac pacemaker (2022) Sivakumar SIMMS History of coronary artery stent placement (2016) V/ murmur History of heart valve replacement (2022) bovine transcatheter heart valve Family History Family History Mother Family history of lung cancer Sibling Family history of lung cancer Social History Social History Smoking status: N
[2023-08-15] MEDS: PERFLUTREN LIPID MICROSPHERES 1.5 ML VIAL DILUTED TO 10 ML TOTAL VOLUME IV PUSH (09:15)
[2023-08-15] MEDS: LOSARTAN POTASSIUM 25 MG TABLET PO ×2 (09:53→20:15)
[2023-08-15] MEDS: PANTOPRAZOLE SODIUM IV 40 MG VIAL IV PUSH (09:53)
[2023-08-15] MEDS: OMEGA 3 POLYUNSAT FATTY ACIDS 1 GM CAP 2 GM PO (09:53)
[2023-08-15] MEDS: ASPIRIN 81 MG ENTERIC TABLET PO (09:53)
[2023-08-15] MEDS: INSULIN ASPART (*BKC) 100 UNITS/ML SUB-Q ×2 (09:54→22:15)
[2023-08-15] MEDS: ATORVASTATIN 40 MG TABLET PO (09:54)
[2023-08-15] MEDS: METOPROLOL TARTRATE 12.5 MG TABLET PO ×2 (09:54→20:15)
--- NOTE | 2023-08-15 10:29 | PM.IMPN ---
Progress Note: A&P Assessment and Plan (1) Non-ST elevation [place] (NSTEMI): Code(s): I21.4 - Non-ST elevation (NSTEMI) myocardial infarction Status: Acute Assessment and Plan: Patient presents with back and chest pain. Treated with ASA and NTP. Started on heparin gtt Troponin: 0.17 -> 1.71 -> 7.25 EKG, initial (14:57): Sinus rhythm with first-degree AV block, possible left atrial enlargement, right axis deviation, RBBB, baseline artifact, and no previous EKG available for comparison. No change on repeat EKGs. Tele showing sustained ?VTach with change in axis, HR 100 and apparent pacing out of this Cardiology consulted and appreciate their input. Continue ASA, Lipitor, Lopressor. Continue Heparin drip. Discussed with cardiology. Plan for [facility] Interrogate PM. (2) HTN (hypertension): Qualifiers: Hypertension type: primary hypertension Qualified Code(s): I10 - Essential (primary) hypertension Code(s): I10 - Essential (primary) hypertension Status: Acute Assessment and Plan: Patient's blood pressure was reviewed on 08/14 Blood pressure remains reasonably well controlled. Will continue current medications. (3) DM2 (diabetes mellitus, type 2): Qualifiers: Diabetes mellitus chcf insulin use: without intermediate school teacher use Diabetes mellitus complication status: without complication Qualified Code(s): E11.9 - Type 2 diabetes mellitus without complications Code(s): E11.9 - Type 2 diabetes mellitus without complications Status: Acute Assessment and Plan: A1c 8.3. The patient's blood glucose was reviewed on 08/14 Glucose remains poorly controlled. Continue AccuCheks covering with sliding scale. Hypoglycemia protocol available as needed. Currently NPO. (4) Hyperlipidemia: Code(s): E78.5 - Hyperlipidemia, unspecified Status: Acute Assessment and Plan: LDl 74. AST 69 otherwise LFTs okay. Continue Lipitor. (5) Aortic stenosis: Code(s): I35.0 - Nonrheumatic aortic (valve) stenosis Status: Acute Assessment and Plan: Patient with a history aortic stenosis status post bovine aortic valve replacement. Echocardiogram ordered. (6) CAD (coronary artery disease): Code(s): I25.10 - Atherosclerotic heart disease of [place] coronary artery without angina pectoris Status: Acute Assessment and Plan: Patient with a history of coronary disease status post artery stent 2016. Has multiple risk factors she with disease. Continue risk modification (7) CKD (chronic kidney disease): Code(s): N18.9 - Chronic kidney disease, unspecified Status: Acute Assessment and Plan: Cr 1.4 in June. Cr 1.4 here but improved today. Follow renal function Plan Diet: NPO DVT Prophylaxis: Heparin gtt Code Status: Full Code Subjective Date/time seen: 08/15/23 10:29 Interval history: 78yo male with CAD, HTN, s/p AVR, DM and HLD here for chest and back pain. Never had pain like this before. No CP or back currently. No SOB. No n/v. Diagnosed in May with PNA and has had brochitis off/on since that time. completed last abx and steroid use a few days prior to admission. Exam Narrative: AF 97.9 111/61 72 18 98% ra Gen - NARD Chest - end expiratory wheezes. nml RR CV - RRR S1/S2. Tele showing sustained ?VTach with attempting pacing out Abd - Soft, NT/ND, Positive BS Ext - No pedal edema Psych - Nml mood and affect Skin - Warm and dry Objective Data Vital Signs Vital Signs: Vital Signs - 24 hr 08/14/23 14:20 08/14/23 15:05 08/14/23 15:46 Temperature 97.8 F Pulse Rate 88 82 Respiratory Rate 16 21 H Blood Pressure 132/78 160/77 H Pulse Oximetry 99 97 Oxygen Delivery Room Air 08/14/23 16:31 08/14/23 16:46 08/14/23 17:01 Temperature Pulse Rate 80 87 84 Respiratory Rate 25 H 25 H 22 H Blood Pressure 156/72 H 162/69 H 146/85 H Pulse Oximet
--- NOTE | 2023-08-15 11:07 | IVDEFINITY ---
Prior to administration of IV Definity the patient was educated on the risks and benefits of the imaging enhancing agent including potential adverse side effects. The patient verbalized understanding. Allergies were verified. No exclusion criteria were identified and at least one of the following inclusion criteria were met: 1) physician request, 2) patient technically difficult to image (per the [place] [employer] Echocardi[employer] guidelines of two or more segments not discernable within the apical view), or 3) questionable left ventricular function. ?
[2023-08-15 12:03] LABS: Glucose Point of Care 166 mg/dl (65-105)
[2023-08-15 13:16] LABS: Partial Thromboplastin Time 73.8 SECONDS (22.3-36.8)
--- NOTE | 2023-08-15 13:53 | P.PCNCC_ITS ---
Cardiac Cath Procedure Note Date of procedure:: 08/15/23 Performing physician:: Rafael Juan MD Indication:: acute coronary syndrome / non ST elevation MO Brief clinical history:: this is a 78-year-old man known to have coronary disease with previous PCI, previous TAVR procedure as well as implantation of dual-chamber pacemaker. He entered this hospital with chest pain for approximately 8 hours troponin levels are consistent with acute coronary injury. EKG has remained nondiagnostic. Procedure Procedure performed:: Coronary angiography Sedation/Medication given:: fentanyl 25 mg Versed 2 mg case start time 1:38 p.m. case end time 1:48 PM sedation provided by Eileen Marcus RN, trained observer Access site:: right femoral artery Estimated blood loss:: 20 cc Procedure note:: patient was brought to the cardiac catheterization lab in the postabsorptive state where the right femoral triangle was prepared and draped in the usual fashion. Anesthesia was infiltrated with 15 cc of lidocaine locally. Using modified Seldinger technique the femoral artery was punctured and a 5 [place] vascular sheath was placed. After this I used a 5 [place] FL4 catheter to engage and inject the left coronary artery in multiple projections following this right coronary was engaged injected using standard 5 [place] JR4 catheter. Attempts were not made to cross the patient's TAVR valve into the left ventricle. The cineangiograms were reviewed and the case was terminated. The patient was taken to the holding area for manual sheath removal. The procedure was well tolerated and uncomplicated. There were no signs of groin hematoma when he left the cardiac catheterization lab. Findings:: Hemodynamics: Central aortic pressure is 1 16/56 the left main coronary artery is moderate caliber there is mild tapering of the distal aspect of the left main were represents no more than 30-40% stenosis. The left anterior descending is a medium caliber artery extending down to the apex. The LAD has visible stent material proximally. The LAD has mild atherosclerosis but there are no flow-limiting lesions identified. Circumflex is a medium caliber vessel giving rise to the marginal branches. The ostium of the circumflex has modest atherosclerotic narrowing extending from the distal left main. This represents again no more than about 30% stenosis. The remainder of the circumflex is free of significant disease. The right coronary artery is medium in caliber and dominant to the posterior wall. The trunk of the right coronary has mild luminal irregularities but no flow-limiting disease. The RPDA is small in caliber with mild diffuse disease. The RPL branch is 100% occluded just after its origin from the distal RCA bifurcation. Angiographically this appears to be consistent with a fresh thrombotic occlusion. Conclusion:: 1. Right coronary dominant circulation with recent acute myocardial infarction due to a abrupt occlusion of the PL branch of the RCA as described above. 2. Angiographically mild distal left main disease does not appear to be flow- limiting 3. previously placed stent in the LAD which is patent 4. previously placed TAVR valve which was not crossed during this procedure Rafael Juan MD [facility]
[2023-08-15 15:49] LABS: Partial Thromboplastin Time 29.1 SECONDS (22.3-36.8)
[2023-08-15 17:47] LABS: Activated Clotting Time 125 SEC (74-137)
[2023-08-15 17:47] LABS: Activated Clotting Time 147 SEC (74-137)
--- NOTE | 2023-08-15 18:02 | PC.NURSE ---
Patient left the floor at 1310 to go to wastewater analyst lab analyst. Patient returned to floor at 1729.
[2023-08-15] MEDS: SODIUM CHLORIDE 0.9% IV 1,000 ML 125 ML IV CONT (20:16)
[2023-08-15] MEDS: BENZOCAINE/MENTHOL (*BKC) 18 EA LOZENGE 1 LOZENGE PO ×2 (20:17→23:22)
[2023-08-15 20:50] LABS: Glucose Point of Care 296 mg/dl (65-105)
[2023-08-16] VITALS (10 sets, daily range): BP systolic 112–131; BP diastolic 50–67; PULSE 60–87; RESP 16; TEMP 36.3–36.6; O2SAT 95–99
[2023-08-16 05:27] LABS: Basophils Percent Auto 0.3 % (0.2-1.2); Eosinophils Absolute Auto 0.3 K/mm3 (0-0.3); Eosinophils Percent Auto 2.5 % (0-4.4); Hematocrit 35.3 % (42.0-52.0); Hemoglobin 10.9 g/dL (14.0-18.0); Immature Granulocyte Absolute 0.04 K/mm3 (0.00-0.031); Immature Granulocyte Percent A 0.4 % (0-0.5); Lymphocytes Absolute Auto 1.84 K/mm3 (0.9-3.2); Mean Corpuscular HGB Conc 30.9 g/dl (32-36); Mean Corpuscular Hemoglobin 27.7 pg (26-34); Mean Corpuscular Volume 89.8 fl (80-100); Mean Platelet Volume 10.2 fl (7.4-10.4); Monocytes Absolute Auto 1.3 K/mm3 (0.1-0.6); Monocytes Percent Auto 12.3 % (2.6-8.5); Neutrophils Absolute Auto 6.8 K/mm3 (1.3-6.7); Neutrophils Percent Auto 66.5 % (45.5-73.1); Platelet Count Result 196 k/mm3 (150-375); Red Blood Count 3.93 M/mm3 (4.6-6.20); Red Cell Distribution Width 15.1 % (11.5-14.5); White Blood Count 10.2 K/mm3 (4.5-10.0)
[2023-08-16 05:56] LABS: Alanine Aminotransferase 20 U/L (6-50); Albumin Level 3.4 g/dL (3.5-5.1); Alkaline Phosphatase 45 U/L (38-126); Anion Gap 2 mmol/L (8-16); Aspartate Amino Transferase 53 U/L (17-59); Bilirubin,Total 0.6 mg/dL (0.2-1.3); Blood Urea Nitrogen 20 mg/dL (9-20); Calcium 8.4 mg/dL (8.4-10.2); Carbon Dioxide 29 mmol/L (22-30); Chloride 101 mmol/L (98-107); Estimated CRCL calculation 48 ml/min; Estimated Glomerular Filt Rate > 60; Glucose 175 mg/dL (65-110); Magnesium 1.8 mg/dL (1.6-2.3); Potassium 4.3 mmol/L (3.4-5.0); Sodium 132 mmol/L (137-145)
[2023-08-16] MEDS: BENZONATATE 100 MG CAPSULE PO (06:34)
[2023-08-16 08:06] LABS: Glucose Point of Care 185 mg/dl (65-105)
[2023-08-16] MEDS: OMEGA 3 POLYUNSAT FATTY ACIDS 1 GM CAP 2 GM PO (09:08)
[2023-08-16] MEDS: METOPROLOL TARTRATE 12.5 MG TABLET PO (09:09)
[2023-08-16] MEDS: LOSARTAN POTASSIUM 25 MG TABLET PO (09:09)
[2023-08-16] MEDS: ATORVASTATIN 40 MG TABLET PO (09:10)
[2023-08-16] MEDS: ASPIRIN 81 MG ENTERIC TABLET PO (09:10)
[2023-08-16] MEDS: PANTOPRAZOLE SODIUM IV 40 MG VIAL IV PUSH (10:18)
--- NOTE | 2023-08-16 10:55 | PM.PNCARD ---
Progress Note: A&P Assessment and Plan (1) Non-ST elevation NE (NSTEMI): Code(s): I21.4 - Non-ST elevation (NSTEMI) myocardial infarction Status: Acute Assessment and Plan: Cardiac catheterization 08/14 showed: Right coronary dominant circulation with recent acute myocardial infarction due to a abrupt occlusion of the PL branch of the RCA as described above. Angiographically mild distal left main disease does not appear to be flow-limiting. Previously placed stent in the LAD which is patent. Previously placed TAVR valve which was not crossed during this procedure. No intervention done as patient already chest pain free and his chest pain had started two days ago. Medical management pursued. Echocardiogram shows LVEF 60-65%, akinesis of basal inferior wall, hypokinesis of the mid inferior wall, basal inferoseptal and mid inferoseptal cochran. Patient is feeling well this morning. No chest pain. Continue ASA 81mg once daily. Will start Plavix 75mg once daily for medical management of NSTEMI. Continue Metoprolol. Continue high-intensity statin. (2) HTN (hypertension): Qualifiers: Hypertension type: primary hypertension Qualified Code(s): I10 - Essential (primary) hypertension Code(s): I10 - Essential (primary) hypertension Status: Acute Assessment and Plan: Stable, continue current antihypertensives. (3) Hyperlipidemia: Code(s): E78.5 - Hyperlipidemia, unspecified Status: Acute Assessment and Plan: Continue statin (4) DM2 (diabetes mellitus, type 2): Qualifiers: Diabetes mellitus usp insulin use: without usp use Diabetes mellitus complication status: without complication Qualified Code(s): E11.9 - Type 2 diabetes mellitus without complications Code(s): E11.9 - Type 2 diabetes mellitus without complications Status: Acute Assessment and Plan: Management as per primary team (5) CKD (chronic kidney disease): Code(s): N18.9 - Chronic kidney disease, unspecified Status: Acute Assessment and Plan: Follow renal function (6) Aortic stenosis: Code(s): I35.0 - Nonrheumatic aortic (valve) stenosis Status: Acute Assessment and Plan: S/p TAVR in 2022. Echocardiogram shows mild TAVR aortic valve stenosis with a peak velocity of 184cm/s, mean gradient of 7mmHg, and LANE of 1.2cm2. Plan Okay for discharge from our standpoint. Patient to follow up with his primary production analyst after discharge. Recommendations and plan discussed with Hospitalist. Subjective Date/time seen: 08/16/23 10:55 Interval history: Reason for visit: NSTEMI HPI: Lino Le is a 78 year old male with aortic stenosis status post TAVR in 2022, CAD with one stent (~2014 according to patient), permanent pacemaker (2022), hypertension, and hyperlipidemia.? This is a patient who follows with Dr. Ivy at [facility].? He presents to [facility] with complaint of intrascapular, neck, and central chest pain.? Pain began about two days ago and has been constant since that time.? He was standing up at the onset of pain and thought sitting in his car and leaning his seat back might help but it did not.? He states he felt light headed and was concerned he was going to pass out.? He denies any exertional chest pain.? Denies shortness of breath, palpitations, syncope, edema.? In the emergency department his initial troponin was 0.107 and has risen to 7.250.? He states he has been free of chest pain since receiving morphine and nitroglycerin last night.? Date of service 08/15: Cardiac catheterization yesterday showed: Right coronary dominant circulation with recent acute myocardial infarction due to a abrupt occlusion of the PL branch of the RCA as described above. Angiographically mild distal left main disease does not appear to be flow-limiting. Previously placed stent in the LAD which is patent. Previously placed TA
[2023-08-16 12:00] LABS: Glucose Point of Care 333 mg/dl (65-105)
[2023-08-16] MEDS: INSULIN ASPART (*BKC) 100 UNITS/ML SUB-Q (12:38)
[2023-08-16] MEDS: CLOPIDOGREL BISULFATE 75 MG TABLET PO ×2 (12:40)
--- NOTE | 2023-08-16 13:46 | PM.DS ---
DS: Admitting Diagnosis Discharge Date 08/16/23 Admitting Diagnosis Chest pain DS: Discharge Diagnosis Discharge Diagnosis (1) Non-ST elevation CO (NSTEMI): Code(s): I21.4 - Non-ST elevation (NSTEMI) myocardial infarction Status: Acute (2) HTN (hypertension): Qualifiers: Hypertension type: primary hypertension Qualified Code(s): I10 - Essential (primary) hypertension Code(s): I10 - Essential (primary) hypertension Status: Acute (3) DM2 (diabetes mellitus, type 2): Qualifiers: Diabetes mellitus terminal superintendent insulin use: without terminal superintendent use Diabetes mellitus complication status: without complication Qualified Code(s): E11.9 - Type 2 diabetes mellitus without complications Code(s): E11.9 - Type 2 diabetes mellitus without complications Status: Acute (4) Hyperlipidemia: Code(s): E78.5 - Hyperlipidemia, unspecified Status: Acute (5) Aortic stenosis: Code(s): I35.0 - Nonrheumatic aortic (valve) stenosis Status: Acute (6) CAD (coronary artery disease): Code(s): I25.10 - Atherosclerotic heart disease of [place] coronary artery without angina pectoris Status: Acute (7) CKD (chronic kidney disease): Code(s): N18.9 - Chronic kidney disease, unspecified Status: Acute DS: Summary Hospital Course Reason for hospitalization: 78yo male with CAD, HTN, s/p AVR, DM and HLD here for chest and back pain. Please see H&P for details. Hospital Course: Patient presents with back and chest pain. Treated with ASA and NTP. Started on heparin gtt. Troponin:? 0.17 -> 1.71 -> 7.25. EKG showing sinus rhythm with first-degree AV block, possible left atrial enlargement, right axis deviation, RBBB, baseline artifact, and no previous EKG available for comparison. No change on repeat EKGs. Cardiology consulted and appreciate their input. We continued his ASA, Lipitor, Lopressor. Patient with a history aortic stenosis status post bovine aortic valve replacement. Echo showing EF 60-65%, mild LV wall thickness, Grade I diastolic dysfunction, basal inferior wall akinesis with mid inferior wall, basal inferoseptal and mid inferoseptal wall hypokinesis. Mild aortic stenosis. Please see report for details. patient underwent left cardiac catheterization 08/14 which showed: Right coronary dominant circulation with recent acute myocardial infarction due to a abrupt occlusion of the PL branch of the RCA as described above. Angiographically mild distal left main disease does not appear to be flow-limiting. Previously placed stent in the LAD which is patent. Previously placed TAVR valve which was not crossed during this procedure. No intervention done as patient already chest pain free and his chest pain had started two days ago.? Plavix added. Patient overall did well and was able to be discharged home on 08/16/23 Status at Discharge Cognitive/behavioral status at discharge: Stable Time Spent with Patient Time attestation: Total time spent providing and/or coordinating discharge services: 34 minutes Time spent: Greater than 30 minutes Exam Narrative: AF 97.9 131/67 75 16 97% ra Gen - NARD Chest - CTA bilaterally, nml RR CV - RRR S1/S2 Abd - Soft, NT/ND, Positive BS Ext - No pedal edema. right groin site dressing clean and dry; no hematoma Psych - Nml mood and affect Skin - Warm and dry DS: Data Data Completed and Pending Labs on day of discharge: Labs from last 24 hours 08/16/23 08/16/23 08/16/23 11:57 07:49 04:38 WBC 10.2 H RBC 3.93 L Hgb 10.9 L Hct 35.3 L MCV 89.8 MCH 27.7 MCHC 30.9 L RDW 15.1 H Plt Count 196 MPV 10.2 Immature Gran % (Auto) 0.4 Neut % (Auto) 66.5 Lymph % (Auto) 18.0 L [place] % (Auto) 12.3 H Eos % (Auto) 2.5 Baso % (Auto) 0.3 Lymph # (Auto) 1.84 [place] # (Auto) 1.3 H Eos # (Auto) 0.3 Baso # (Auto) 0.0 Abs Immat Gran (auto) 0.04 H A
== END 2023-08-16 15:22 | disposition home or self-care (01) | DRG 282 ==
LOC: ANHED 17:34 → ANHIMU 18:34
PROVIDERS: Specialist; Student in an Organized Health Care Education/Training Program; Admitting Provider Family Medicine; Emergency Provider Emergency Medicine; PCP Internal Medicine; Visit Provider Internal Medicine
PROC: 4A023N7 Measurement of Cardiac Sampling and Pressure, Left Heart, Percutaneous Approach (ICD-10-PCS; CPT 93452; principal; 2023-08-15 16:00)
DX: I21.4 Non-ST elevation (NSTEMI) myocardial infarction (principal); I25.2 Old myocardial infarction; I25.10 Atherosclerotic heart disease of native coronary artery without angina pectoris; I12.9 Hypertensive chronic kidney disease with stage 1 through stage 4 chronic kidney disease, or unspecified chronic kidney disease; I35.0 Nonrheumatic aortic (valve) stenosis; E78.5 Hyperlipidemia, unspecified; E11.22 Type 2 diabetes mellitus with diabetic chronic kidney disease; N18.9 Chronic kidney disease, unspecified; Z95.2 Presence of prosthetic heart valve; Z95.5 Presence of coronary angioplasty implant and graft; Z95.0 Presence of cardiac pacemaker; Z79.82 Long term (current) use of aspirin; Z79.84 Long term (current) use of oral hypoglycemic drugs
CPT/HCPCS: 36415; 71045; 71275; 80053; 80061; 81003; 82948; 83036; 83735; 83880; 84484; 85025; 85380; 85610; 85730; 93005; 93458; 96366; 96375; 96376; 99285; A9270; C1887; C1894; C8929; C9113; G0378; J1644; J1815; J2250; J2270; J3010; J7030; J7040; Q9957; Q9967